=== PATIENT | female | born 1950 | race Caucasian/White ===

== ENCOUNTER 2018-11-07 17:03 | Emergency (ER) | payer MEDICARE, OTHER ==
[2018-11-07] MEDS: SOD CHLORIDE 0.9% 680 ML IV (17:41)
[2018-11-07 17:48] LABS: ADD MAN DIFF? NO
[2018-11-07 17:51] LABS: BASOPHIL # 0.1 10^3/ul (0.0-0.1); BASOPHILS % 1.5 % (0.0-2.0); EOSINOPHILS # 0.2 10^3/ul (0.0-0.5); EOSINOPHILS % 3.9 % (0.0-7.0); HEMATOCRIT 28.5 % (37.0-47.0); HEMOGLOBIN 9.4 g/dl (12.0-16.0); LYMPHOCYTES # 1.9 10^3/ul (0.8-2.9); LYMPHOCYTES % 32.3 % (15.0-51.0); MEAN CORPUSCULAR HEMOGLOBIN 29.8 pg (29.0-33.0); MEAN CORPUSCULAR VOLUME 90.5 fl (82.0-101.0); MEAN PLATELET VOLUME 12.3 fl (7.4-10.4); MONOCYTE # 0.7 10^3/ul (0.3-0.9); MONOCYTES % 10.9 % (0.0-11.0); NEUTROPHILS % 50.9 % (39.0-77.0); PLATELET COUNT 105 10^3/UL (140-415); RED BLOOD COUNT 3.15 10^6/ul (4.20-5.40); RED CELL DISTRIBUTION WIDTH 15.9 % (11.5-14.5)
[2018-11-07 17:57] LABS: ANION GAP 2 (5-13); BLOOD UREA NITROGEN 16 mg/dl (7-20); CALCIUM 8.2 mg/dl (8.4-10.2); CARBON DIOXIDE 25 mmol/L (21-31); CHLORIDE 105 mmol/L (97-110); CREATININE 0.52 mg/dl (0.44-1.00); Estimated GFR > 60 mL/min (>60); MAGNESIUM 1.5 mg/dl (1.7-2.5); PHOSPHORUS 3.5 mg/dl (2.5-4.9); POTASSIUM 4.9 mmol/L (3.5-5.1); SODIUM 132 mmol/L (135-144)
[2018-11-07 18:03] LABS: GLUCOSE 487 mg/dl (70-220)
[2018-11-07 18:08] LABS: TROPONIN-I < 0.012 ng/ml (0.000-0.120)
[2018-11-07 18:12] LABS: AADO2 Venous 47.8 mmHg; MODE ROOM AIR; MetHgb Venous 0.5 %; Sample Type Blood venous; Site OTHER; Venous COHb 0.3 %; Venous Fraction OxyHgb 88.6 %; Venous Oxygen Sat 89.3 mmHG (55.0-75.0); Venous Total Hemglobin 10.4 g/dl
[2018-11-07] MEDS: INSULIN LISPRO 100 UNIT/ML VIAL SC (19:21)
[2018-11-07 21:54] LABS: ADD UMIC NO; UR ASCORBIC ACID NEGATIVE (NEGATIVE); UR BILIRUBIN (Dip) NEGATIVE (NEGATIVE); UR BLOOD (Dip) NEGATIVE (NEGATIVE); UR CLARITY CLEAR (CLEAR); UR COLOR YELLOW (YELLOW); UR GLUCOSE (Dip) 3+ mg/dL (NEGATIVE); UR KETONES (Dip) NEGATIVE (NEGATIVE); UR LEUKOCYTE ESTERASE (Dip) NEGATIVE Leu/ul (NEGATIVE); UR NITRITE (Dip) NEGATIVE (NEGATIVE); UR SPECIFIC GRAVITY (Dip) 1.023 (1.003-1.030); UR TOTAL PROTEIN (Dip) NEGATIVE (NEGATIVE); UR UROBILINOGEN (Dip) NEGATIVE (NEGATIVE)
[2018-11-07] MEDS ORDERED: GLUCOSE GEL 15 GRAM TUBE BUCCAL (22:30)
[2018-11-07] MEDS ORDERED: GLUCAGON 1 MG INJ IM (22:30)
[2018-11-07] MEDS ORDERED: DEXTROSE 50% 50 ML SYRINGE IV ×2 (22:30)
[2018-11-07] MEDS ORDERED: GLUCOSE GEL 15 GRAM TUBE PO ×2 (22:30)
[2018-11-07] MEDS: MAGNESIUM SULFATE 1 GM/D5W 100 ML IVPB ×2 (22:49)
[2018-11-07] MEDS: INSULIN REGULAR, HUMAN 100 UNIT/1 ML 3ML VIAL SC (22:52)
== END 2018-11-08 02:15 | disposition home or self-care (01) ==
LOC: E/R 11-08 02:15
DX: E11.65 Type 2 diabetes mellitus with hyperglycemia (principal); I10 Essential (primary) hypertension; Z79.4 Long term (current) use of insulin
CPT/HCPCS: 36415; 71045; 80048; 81003; 82803; 82962; 83735; 84100; 84484; 85025; 93005; 96361; 96365; 96372; 99285-25

== ENCOUNTER 2018-11-08 20:16 | Inpatient (IN) | payer MEDICARE, OTHER ==
[2018-11-08] MEDS: LORAZEPAM 2 MG INJ IV (20:40)
[2018-11-08 21:51] LABS: ADD UMIC NO; UR ASCORBIC ACID 20 mg/dL (NEGATIVE); UR BILIRUBIN (Dip) NEGATIVE (NEGATIVE); UR BLOOD (Dip) NEGATIVE (NEGATIVE); UR CLARITY CLEAR (CLEAR); UR COLOR YELLOW (YELLOW); UR GLUCOSE (Dip) NEGATIVE (NEGATIVE); UR KETONES (Dip) NEGATIVE (NEGATIVE); UR LEUKOCYTE ESTERASE (Dip) NEGATIVE Leu/ul (NEGATIVE); UR NITRITE (Dip) NEGATIVE (NEGATIVE); UR SPECIFIC GRAVITY (Dip) 1.018 (1.003-1.030); UR TOTAL PROTEIN (Dip) NEGATIVE (NEGATIVE); UR UROBILINOGEN (Dip) NEGATIVE (NEGATIVE)
[2018-11-08 21:52] LABS: ADD MAN DIFF? NO
[2018-11-08 21:55] LABS: BASOPHIL # 0.1 10^3/ul (0.0-0.1); BASOPHILS % 1.1 % (0.0-2.0); EOSINOPHILS # 0.1 10^3/ul (0.0-0.5); EOSINOPHILS % 2.3 % (0.0-7.0); HEMATOCRIT 35.8 % (37.0-47.0); HEMOGLOBIN 11.4 g/dl (12.0-16.0); LYMPHOCYTES # 1.6 10^3/ul (0.8-2.9); LYMPHOCYTES % 29.6 % (15.0-51.0); MEAN CORPUSCULAR HEMOGLOBIN 29.5 pg (29.0-33.0); MEAN CORPUSCULAR HGB CONC 31.8 g/dl (32.0-37.0); MEAN CORPUSCULAR VOLUME 92.5 fl (82.0-101.0); MEAN PLATELET VOLUME 12.1 fl (7.4-10.4); MONOCYTE # 0.4 10^3/ul (0.3-0.9); MONOCYTES % 7.1 % (0.0-11.0); NEUTROPHIL # 3.1 10^3/ul (1.6-7.5); NEUTROPHILS % 59.5 % (39.0-77.0); PLATELET COUNT 123 10^3/UL (140-415); RED BLOOD COUNT 3.87 10^6/ul (4.20-5.40); RED CELL DISTRIBUTION WIDTH 15.6 % (11.5-14.5)
[2018-11-08 21:55] LABS: WHITE BLOOD COUNT 5.2 10^3/ul (4.8-10.8)
[2018-11-08 22:05] LABS: AMPHETAMINE/METHAMPHETAMINE Negative (NEGATIVE); BARBITURATES Negative (NEGATIVE); BENZODIAZEPINES Positive (NEGATIVE); CANNABINOIDS Negative (NEGATIVE); COCAINE Negative (NEGATIVE); OPIATES Negative (NEGATIVE)
[2018-11-08 22:14] LABS: ALANINE AMINOTRANSFERASE 93 IU/L (13-69); ALBUMIN 2.5 g/dl (3.3-4.9); ALBUMIN/GLOBULIN RATIO 0.58; ALKALINE PHOSPHATASE 148 IU/L (42-121); ANION GAP 3 (5-13); ASPARTATE AMINO TRANSFERASE 109 IU/L (15-46); BILIRUBIN,INDIRECT 0.8 mg/dl (0-1.1); BILIRUBIN,TOTAL 0.8 mg/dl (0.2-1.3); BLOOD UREA NITROGEN 19 mg/dl (7-20); CALCIUM 8.1 mg/dl (8.4-10.2); CARBON DIOXIDE 26 mmol/L (21-31); CHLORIDE 107 mmol/L (97-110); CREATININE 0.55 mg/dl (0.44-1.00); Estimated GFR > 60 mL/min (>60); GLUCOSE 229 mg/dl (70-220); POTASSIUM 4.1 mmol/L (3.5-5.1); SODIUM 136 mmol/L (135-144); TOTAL PROTEIN 6.8 g/dl (6.1-8.1)
[2018-11-08 22:15] LABS: AMMONIA 38 umol/l (9-30)
[2018-11-08] MEDS: SOD CHLORIDE 0.9% 1,000 ML IV (22:22)
[2018-11-08] MEDS: HALOPERIDOL 5 MG INJ IM (22:22)
[2018-11-08 22:26] LABS: TROPONIN-I < 0.012 ng/ml (0.000-0.120)
[2018-11-08 22:40] LABS: ETHANOL < 10.0 mg/dl (0-0)
[2018-11-08] MEDS ORDERED: NACL 0.9% 3 ML SYG IV (23:30)
[2018-11-08] MEDS ORDERED: DEXTROSE 50% 50 ML SYRINGE IV ×2 (23:30)
[2018-11-08] MEDS ORDERED: GLUCOSE GEL 15 GRAM TUBE PO ×2 (23:30)
[2018-11-08] MEDS ORDERED: DOCUSATE SODIUM 100 MG CAP PO (23:30)
[2018-11-08] MEDS ORDERED: BISACODYL (EC) 5 MG TAB PO (23:30)
[2018-11-08] MEDS ORDERED: GLUCAGON 1 MG INJ IM (23:30)
[2018-11-08] MEDS ORDERED: ONDANSETRON 4 MG INJ IV (23:30)
[2018-11-08] MEDS ORDERED: GLUCOSE GEL 15 GRAM TUBE BUCCAL (23:30)
[2018-11-08 23:31] LABS: MODE ROOM AIR; MetHgb Venous 0.5 %; Sample Type Blood venous; Site VENOUS LINE; Venous COHb 0.2 %; Venous Fraction OxyHgb 90.9 %; Venous Oxygen Sat 91.5 mmHG (55.0-75.0); Venous Total Hemglobin 7.8 g/dl
[2018-11-08] MEDS: MIDAZOLAM 1 MG/ML 2 ML INJ IV (23:34)
[2018-11-08 23:46] LABS: HAAIG REFLEX REFLEX FILED
[2018-11-09] MEDS: LACTULOSE 30ML CUP PO (00:03)
[2018-11-09 00:39] LABS: HEPATITIS B SURFACE ANTIGEN NEGATIVE (NEGATIVE)
[2018-11-09 00:57] LABS: HEPATITIS B CORE ANTIBODY NEGATIVE (NEGATIVE)
[2018-11-09 00:57] LABS: HEPATITIS B SURFACE ANTIBODY NEGATIVE (NEGATIVE)
[2018-11-09] MEDS: INSULIN ASPART [NOVOLOG] 3 ML PEN SC ×6 (01:00→21:00)
[2018-11-09 01:01] LABS: HEPATITIS C VIRAL ANTIBODY REACTIVE (NEGATIVE)
[2018-11-09] MEDS: SOD CHLORIDE 0.9% 1,000 ML IV (01:24)
[2018-11-09] MEDS: ACCU-CHEK XX (01:47)
[2018-11-09] MEDS ORDERED: hydrALAzine 20 MG INJ IV (03:30)
[2018-11-09 05:41] LABS: ADD MAN DIFF? NO
[2018-11-09 05:49] LABS: WHITE BLOOD COUNT 5.2 10^3/ul (4.8-10.8)
[2018-11-09 05:49] LABS: ABNORMAL IP MESSAGE 1; BASOPHIL # 0.1 10^3/ul (0.0-0.1); BASOPHILS % 1.1 % (0.0-2.0); EOSINOPHILS # 0.2 10^3/ul (0.0-0.5); EOSINOPHILS % 4.4 % (0.0-7.0); HEMATOCRIT 30.8 % (37.0-47.0); HEMOGLOBIN 9.9 g/dl (12.0-16.0); LYMPHOCYTES # 1.7 10^3/ul (0.8-2.9); LYMPHOCYTES % 33.1 % (15.0-51.0); MEAN CORPUSCULAR HEMOGLOBIN 29.5 pg (29.0-33.0); MEAN CORPUSCULAR HGB CONC 32.1 g/dl (32.0-37.0); MEAN CORPUSCULAR VOLUME 91.7 fl (82.0-101.0); MEAN PLATELET VOLUME 12.2 fl (7.4-10.4); MONOCYTE # 0.4 10^3/ul (0.3-0.9); MONOCYTES % 8.4 % (0.0-11.0); NEUTROPHIL # 2.8 10^3/ul (1.6-7.5); NEUTROPHILS % 52.8 % (39.0-77.0); PLATELET COUNT 98 10^3/UL (140-415); RED BLOOD COUNT 3.36 10^6/ul (4.20-5.40); RED CELL DISTRIBUTION WIDTH 15.8 % (11.5-14.5)
[2018-11-09 05:58] LABS: POSITIVE DIFF @See below
[2018-11-09 06:40] LABS: ALANINE AMINOTRANSFERASE 76 IU/L (13-69); ALBUMIN 1.9 g/dl (3.3-4.9); ALBUMIN/GLOBULIN RATIO 0.54; ALKALINE PHOSPHATASE 107 IU/L (42-121); ANION GAP 1 (5-13); ASPARTATE AMINO TRANSFERASE 85 IU/L (15-46); BILIRUBIN,INDIRECT 0.7 mg/dl (0-1.1); BILIRUBIN,TOTAL 0.7 mg/dl (0.2-1.3); BLOOD UREA NITROGEN 16 mg/dl (7-20); CALCIUM 7.5 mg/dl (8.4-10.2); CARBON DIOXIDE 25 mmol/L (21-31); CHLORIDE 112 mmol/L (97-110); CREATININE 0.43 mg/dl (0.44-1.00); Estimated GFR > 60 mL/min (>60); GLUCOSE 186 mg/dl (70-220); MAGNESIUM 1.7 mg/dl (1.7-2.5); POTASSIUM 3.5 mmol/L (3.5-5.1); SODIUM 138 mmol/L (135-144); TOTAL PROTEIN 5.4 g/dl (6.1-8.1)
[2018-11-09] MEDS: SOD CHLORIDE 0.45% 1,000 ML IV ×2 (09:36→21:00)
[2018-11-09] MEDS: hydrALAzine 20 MG INJ IV (09:46)
[2018-11-09 10:43] LABS: AMMONIA 83 umol/l (9-30)
[2018-11-09] MEDS: DIAZEPAM 10 MG/2 ML SYG IV (16:07)
[2018-11-09] MEDS: THIAMINE 100 MG TAB PO (17:00)
[2018-11-09] MEDS: LACTULOSE ENEMA 1,000 ML BTL PR (18:49)
[2018-11-10] MEDS: INSULIN ASPART [NOVOLOG] 3 ML PEN SC ×6 (00:59→20:44)
[2018-11-10] MEDS: ACCU-CHEK XX (01:03)
[2018-11-10] MEDS: SOD CHLORIDE 0.45% 1,000 ML IV (01:04)
[2018-11-10 05:50] LABS: ADD MAN DIFF? NO
[2018-11-10 05:57] LABS: WHITE BLOOD COUNT 6.7 10^3/ul (4.8-10.8)
[2018-11-10 05:57] LABS: BASOPHIL # 0.1 10^3/ul (0.0-0.1); BASOPHILS % 1.5 % (0.0-2.0); EOSINOPHILS # 0.2 10^3/ul (0.0-0.5); EOSINOPHILS % 3.3 % (0.0-7.0); HEMATOCRIT 32.7 % (37.0-47.0); HEMOGLOBIN 10.7 g/dl (12.0-16.0); LYMPHOCYTES # 1.9 10^3/ul (0.8-2.9); LYMPHOCYTES % 29.1 % (15.0-51.0); MEAN CORPUSCULAR HEMOGLOBIN 29.7 pg (29.0-33.0); MEAN CORPUSCULAR HGB CONC 32.7 g/dl (32.0-37.0); MEAN CORPUSCULAR VOLUME 90.8 fl (82.0-101.0); MEAN PLATELET VOLUME 11.4 fl (7.4-10.4); MONOCYTE # 0.7 10^3/ul (0.3-0.9); NEUTROPHIL # 3.7 10^3/ul (1.6-7.5); NEUTROPHILS % 55.8 % (39.0-77.0); RED CELL DISTRIBUTION WIDTH 15.8 % (11.5-14.5)
[2018-11-10 06:16] LABS: INR 1.76; PROTIME 20.6 Sec (11.9-14.9); PT RATIO 1.6
[2018-11-10 06:29] LABS: ALANINE AMINOTRANSFERASE 100 IU/L (13-69); ALBUMIN 1.9 g/dl (3.3-4.9); ALBUMIN/GLOBULIN RATIO 0.46; ALKALINE PHOSPHATASE 107 IU/L (42-121); ANION GAP 5 (5-13); ASPARTATE AMINO TRANSFERASE 131 IU/L (15-46); BILIRUBIN,INDIRECT 1.4 mg/dl (0-1.1); BILIRUBIN,TOTAL 1.4 mg/dl (0.2-1.3); BLOOD UREA NITROGEN 17 mg/dl (7-20); CALCIUM 7.7 mg/dl (8.4-10.2); CARBON DIOXIDE 20 mmol/L (21-31); CHLORIDE 113 mmol/L (97-110); CREATININE 0.42 mg/dl (0.44-1.00); Estimated GFR > 60 mL/min (>60); GLUCOSE 109 mg/dl (70-220); POTASSIUM 3.5 mmol/L (3.5-5.1); SODIUM 138 mmol/L (135-144)
[2018-11-10 06:30] LABS: PHOSPHORUS 3.1 mg/dl (2.5-4.9)
[2018-11-10 06:30] LABS: MAGNESIUM 1.6 mg/dl (1.7-2.5)
[2018-11-10 06:34] LABS: AMMONIA 84 umol/l (9-30)
[2018-11-10 06:49] LABS: PLATELET COUNT 128 10^3/UL (140-415); POSITIVE DIFF @See below
[2018-11-10 07:33] LABS: FOLATE 12.3 ng/ml (2.8-20.0)
[2018-11-10] MEDS: THIAMINE 100 MG TAB PO (09:00)
[2018-11-10] MEDS: FAMOTIDINE 20 MG INJ IV (09:00)
[2018-11-10 15:37] LABS: RAPID PLASMA REAGIN NONREACTIVE (NR)
[2018-11-10] MEDS: ACETAMINOPHEN 325 MG TAB PO (22:12)
[2018-11-11] MEDS: ACCU-CHEK XX (02:00)
[2018-11-11] MEDS: INSULIN ASPART [NOVOLOG] 3 ML PEN SC ×4 (07:05→21:39)
[2018-11-11] MEDS: FAMOTIDINE 20 MG INJ IV (09:00)
[2018-11-11] MEDS: THIAMINE 100 MG TAB PO (09:01)
[2018-11-11] MEDS: LACTULOSE 30ML CUP PO ×3 (11:44→21:37)
[2018-11-11] MEDS: ACETAMINOPHEN 325 MG TAB PO (21:37)
[2018-11-12] MEDS: ACCU-CHEK XX ×4 (02:00→20:57)
[2018-11-12 05:22] LABS: ADD MAN DIFF? NO
[2018-11-12 05:26] LABS: BASOPHIL # 0.1 10^3/ul (0.0-0.1); BASOPHILS % 1.3 % (0.0-2.0); EOSINOPHILS # 0.3 10^3/ul (0.0-0.5); EOSINOPHILS % 5.1 % (0.0-7.0); HEMATOCRIT 31.9 % (37.0-47.0); HEMOGLOBIN 10.3 g/dl (12.0-16.0); LYMPHOCYTES # 2.1 10^3/ul (0.8-2.9); LYMPHOCYTES % 33.2 % (15.0-51.0); MEAN CORPUSCULAR HEMOGLOBIN 28.9 pg (29.0-33.0); MEAN CORPUSCULAR HGB CONC 32.3 g/dl (32.0-37.0); MEAN CORPUSCULAR VOLUME 89.6 fl (82.0-101.0); MEAN PLATELET VOLUME 11.8 fl (7.4-10.4); MONOCYTE # 0.6 10^3/ul (0.3-0.9); MONOCYTES % 8.9 % (0.0-11.0); NEUTROPHIL # 3.2 10^3/ul (1.6-7.5); NEUTROPHILS % 51.2 % (39.0-77.0); PLATELET COUNT 132 10^3/UL (140-415); RED BLOOD COUNT 3.56 10^6/ul (4.20-5.40); RED CELL DISTRIBUTION WIDTH 15.4 % (11.5-14.5)
[2018-11-12 05:26] LABS: WHITE BLOOD COUNT 6.3 10^3/ul (4.8-10.8)
[2018-11-12] MEDS: LACTULOSE 30ML CUP PO ×3 (05:30→20:56)
[2018-11-12 05:52] LABS: MAGNESIUM 1.5 mg/dl (1.7-2.5)
[2018-11-12 05:54] LABS: AMMONIA 26 umol/l (9-30)
[2018-11-12 05:56] LABS: ALANINE AMINOTRANSFERASE 121 IU/L (13-69); ALBUMIN 2.2 g/dl (3.3-4.9); ALBUMIN/GLOBULIN RATIO 0.53; ALKALINE PHOSPHATASE 135 IU/L (42-121); ANION GAP 2 (5-13); ASPARTATE AMINO TRANSFERASE 165 IU/L (15-46); BILIRUBIN,INDIRECT 1.5 mg/dl (0-1.1); BILIRUBIN,TOTAL 1.5 mg/dl (0.2-1.3); BLOOD UREA NITROGEN 13 mg/dl (7-20); CALCIUM 8.1 mg/dl (8.4-10.2); CARBON DIOXIDE 28 mmol/L (21-31); CHLORIDE 107 mmol/L (97-110); CREATININE 0.52 mg/dl (0.44-1.00); Estimated GFR > 60 mL/min (>60); GLUCOSE 132 mg/dl (70-220); POTASSIUM 3.6 mmol/L (3.5-5.1); SODIUM 137 mmol/L (135-144); TOTAL PROTEIN 6.3 g/dl (6.1-8.1)
[2018-11-12] MEDS: FAMOTIDINE 20 MG INJ IV (07:36)
[2018-11-12] MEDS: THIAMINE 100 MG TAB PO (08:06)
[2018-11-12] MEDS: FAMOTIDINE 20 MG TAB PO (08:06)
[2018-11-12] MEDS: INSULIN ASPART [NOVOLOG] 3 ML PEN SC ×4 (08:08→20:56)
[2018-11-12] MEDS ORDERED: MAGNESIUM SULFATE 3 GM in DEXTROSE 5% 100 ML IVPB (08:30)
[2018-11-12] MEDS ORDERED: MAGNESIUM OXIDE 400 MG TAB (09:17)
[2018-11-12] MEDS: METOPROLOL (XL) 25 MG TAB PO (09:21)
[2018-11-12] MEDS: MAGNESIUM OXIDE 400 MG TAB PO ×3 (09:21→20:56)
[2018-11-12] MEDS: metFORMIN 500 MG TAB PO ×3 (13:30→17:11)
[2018-11-12] MEDS: ACETAMINOPHEN 325 MG TAB PO (20:56)
[2018-11-13] MEDS: ACCU-CHEK XX ×2 (02:00→07:05)
[2018-11-13 05:32] LABS: ADD MAN DIFF? NO
[2018-11-13 05:34] LABS: BASOPHIL # 0.1 10^3/ul (0.0-0.1); BASOPHILS % 1.5 % (0.0-2.0); EOSINOPHILS # 0.4 10^3/ul (0.0-0.5); EOSINOPHILS % 6.4 % (0.0-7.0); HEMATOCRIT 34.3 % (37.0-47.0); LYMPHOCYTES # 2.1 10^3/ul (0.8-2.9); LYMPHOCYTES % 34.4 % (15.0-51.0); MEAN CORPUSCULAR HGB CONC 32.1 g/dl (32.0-37.0); MEAN CORPUSCULAR VOLUME 90.5 fl (82.0-101.0); MEAN PLATELET VOLUME 10.7 fl (7.4-10.4); MONOCYTE # 0.5 10^3/ul (0.3-0.9); MONOCYTES % 8.9 % (0.0-11.0); NEUTROPHIL # 2.9 10^3/ul (1.6-7.5); NEUTROPHILS % 48.5 % (39.0-77.0); PLATELET COUNT 150 10^3/UL (140-415); RED BLOOD COUNT 3.79 10^6/ul (4.20-5.40); RED CELL DISTRIBUTION WIDTH 15.3 % (11.5-14.5)
[2018-11-13 05:55] LABS: MAGNESIUM 1.7 mg/dl (1.7-2.5)
[2018-11-13 05:55] LABS: PHOSPHORUS 2.9 mg/dl (2.5-4.9)
[2018-11-13 05:58] LABS: AMMONIA 91 umol/l (9-30)
[2018-11-13 05:58] LABS: ALANINE AMINOTRANSFERASE 118 IU/L (13-69); ALBUMIN 2.3 g/dl (3.3-4.9); ALBUMIN/GLOBULIN RATIO 0.52; ALKALINE PHOSPHATASE 155 IU/L (42-121); ANION GAP 2 (5-13); ASPARTATE AMINO TRANSFERASE 161 IU/L (15-46); BILIRUBIN,INDIRECT 1.4 mg/dl (0-1.1); BILIRUBIN,TOTAL 1.4 mg/dl (0.2-1.3); BLOOD UREA NITROGEN 15 mg/dl (7-20); CALCIUM 8.2 mg/dl (8.4-10.2); CARBON DIOXIDE 26 mmol/L (21-31); CHLORIDE 106 mmol/L (97-110); CREATININE 0.48 mg/dl (0.44-1.00); Estimated GFR > 60 mL/min (>60); GLUCOSE 159 mg/dl (70-220); POTASSIUM 3.8 mmol/L (3.5-5.1); SODIUM 134 mmol/L (135-144); TOTAL PROTEIN 6.7 g/dl (6.1-8.1)
[2018-11-13] MEDS: LACTULOSE 30ML CUP PO (06:00)
[2018-11-13] MEDS: FAMOTIDINE 20 MG TAB PO (08:39)
[2018-11-13] MEDS: metFORMIN 500 MG TAB PO (08:39)
[2018-11-13] MEDS: THIAMINE 100 MG TAB PO (08:40)
[2018-11-13] MEDS: MAGNESIUM OXIDE 400 MG TAB PO (08:40)
[2018-11-13] MEDS: METOPROLOL (XL) 25 MG TAB PO (08:41)
[2018-11-13] MEDS: INSULIN ASPART [NOVOLOG] 3 ML PEN SC (08:44)
== END 2018-11-13 11:35 | disposition home health service (06) | DRG 441 ==
LOC: MS3 23:24 → E/R 20:16
PROVIDERS: Family Medicine
DX: K72.90 Hepatic failure, unspecified without coma (principal); G92 Toxic encephalopathy; E11.65 Type 2 diabetes mellitus with hyperglycemia; K70.30 Alcoholic cirrhosis of liver without ascites; K82.8 Other specified diseases of gallbladder; E88.81 Metabolic syndrome and other insulin resistance; B19.20 Unspecified viral hepatitis C without hepatic coma; I10 Essential (primary) hypertension; I83.90 Asymptomatic varicose veins of unspecified lower extremity; G25.71 Drug induced akathisia; T43.4X5A Adverse effect of butyrophenone and thiothixene neuroleptics, initial encounter
CPT/HCPCS: 36415; 70450; 71045; 74176; 76705; 80053; 80307; 81003; 82105; 82140; 82607; 82746; 82803; 82962; 83036; 83735; 84100; 84443; 84484; 85025; 85610; 86592; 86704; 86706; 86709; 86803; 87340; 87522; 92610; 93005; 96361; 96372; 96374; 97110; 97116; 97162; 97530; 99285-25

== ENCOUNTER 2018-11-13 19:11 | Inpatient (IN) | payer MEDICARE, OTHER ==
[2018-11-13] MEDS: LACTULOSE ENEMA 1,000 ML BTL PR (02:35)
[2018-11-13] MEDS: SOD CHLORIDE 0.9% 1,000 ML IV (04:00)
[2018-11-13] MEDS ORDERED: ACETAMINOPHEN 325 MG TAB PO (19:30)
[2018-11-13] MEDS ORDERED: ONDANSETRON 4 MG INJ IV ×2 (19:30→20:00)
[2018-11-13 19:55] LABS: ADD UMIC YES; UR ASCORBIC ACID NEGATIVE (NEGATIVE); UR BILIRUBIN (Dip) NEGATIVE (NEGATIVE); UR BLOOD (Dip) 3+ mg/dL (NEGATIVE); UR CLARITY SLIGHTLY CLOUDY (CLEAR); UR COLOR AMBER (YELLOW); UR GLUCOSE (Dip) NEGATIVE (NEGATIVE); UR KETONES (Dip) TRACE mg/dL (NEGATIVE); UR LEUKOCYTE ESTERASE (Dip) TRACE Leu/ul (NEGATIVE); UR MUCUS FEW /HPF (NONE SEEN); UR NITRITE (Dip) NEGATIVE (NEGATIVE); UR RBC > 182 /HPF (0-5); UR SPECIFIC GRAVITY (Dip) 1.024 (1.003-1.030); UR TOTAL PROTEIN (Dip) 1+ mg/dl (NEGATIVE); UR UROBILINOGEN (Dip) 1+ mg/dL (NEGATIVE); UR WBC 32 /HPF (0-5)
[2018-11-13] MEDS ORDERED: NACL 0.9% 3 ML SYG IV (20:00)
[2018-11-13 20:01] LABS: ADD MAN DIFF? NO
[2018-11-13 20:06] LABS: AMPHETAMINE/METHAMPHETAMINE Negative (NEGATIVE); BARBITURATES Negative (NEGATIVE); BENZODIAZEPINES Positive (NEGATIVE); CANNABINOIDS Negative (NEGATIVE); COCAINE Negative (NEGATIVE); OPIATES Negative (NEGATIVE)
[2018-11-13] MEDS: LORAZEPAM 2 MG INJ IV (20:09)
[2018-11-13] MEDS: LACTULOSE 30ML CUP PO (20:13)
[2018-11-13 20:15] LABS: BASOPHIL # 0.1 10^3/ul (0.0-0.1); BASOPHILS % 1.5 % (0.0-2.0); EOSINOPHILS # 0.3 10^3/ul (0.0-0.5); EOSINOPHILS % 4.6 % (0.0-7.0); HEMATOCRIT 32.5 % (37.0-47.0); HEMOGLOBIN 10.6 g/dl (12.0-16.0); LYMPHOCYTES # 1.8 10^3/ul (0.8-2.9); LYMPHOCYTES % 32.9 % (15.0-51.0); MEAN CORPUSCULAR HEMOGLOBIN 29.4 pg (29.0-33.0); MEAN CORPUSCULAR HGB CONC 32.6 g/dl (32.0-37.0); MEAN CORPUSCULAR VOLUME 90.3 fl (82.0-101.0); MONOCYTE # 0.5 10^3/ul (0.3-0.9); MONOCYTES % 9.9 % (0.0-11.0); NEUTROPHIL # 2.7 10^3/ul (1.6-7.5); NEUTROPHILS % 50.9 % (39.0-77.0); PLATELET COUNT 132 10^3/UL (140-415); RED CELL DISTRIBUTION WIDTH 15.4 % (11.5-14.5)
[2018-11-13 20:15] LABS: WHITE BLOOD COUNT 5.4 10^3/ul (4.8-10.8)
[2018-11-13 20:19] LABS: AMMONIA 23 umol/l (9-30)
[2018-11-13 20:20] LABS: ALANINE AMINOTRANSFERASE 119 IU/L (13-69); ALBUMIN 2.7 g/dl (3.3-4.9); ALBUMIN/GLOBULIN RATIO 0.61; ALKALINE PHOSPHATASE 164 IU/L (42-121); ANION GAP 2 (5-13); ASPARTATE AMINO TRANSFERASE 156 IU/L (15-46); BILIRUBIN,INDIRECT 1.2 mg/dl (0-1.1); BILIRUBIN,TOTAL 1.2 mg/dl (0.2-1.3); BLOOD UREA NITROGEN 18 mg/dl (7-20); CALCIUM 8.9 mg/dl (8.4-10.2); CARBON DIOXIDE 27 mmol/L (21-31); CHLORIDE 105 mmol/L (97-110); CREATININE 0.59 mg/dl (0.44-1.00); Estimated GFR > 60 mL/min (>60); GLUCOSE 184 mg/dl (70-220); SODIUM 134 mmol/L (135-144); TOTAL PROTEIN 7.1 g/dl (6.1-8.1)
[2018-11-13 20:21] LABS: ACETAMINOPHEN < 10.0 ug/ml (10.0-30.0); ETHANOL < 10.0 mg/dl (0-0); SALICYLATE < 1.0 mg/dl (5.0-30.0)
[2018-11-13] MEDS: HALOPERIDOL 5 MG INJ IM (20:38)
[2018-11-13] MEDS ORDERED: LACTULOSE 30ML CUP PO (22:00)
[2018-11-13] MEDS ORDERED: DEXTROSE 50% 50 ML SYRINGE IV ×2 (22:00)
[2018-11-13] MEDS ORDERED: GLUCOSE GEL 15 GRAM TUBE BUCCAL (22:00)
[2018-11-13] MEDS ORDERED: GLUCAGON 1 MG INJ IM (22:00)
[2018-11-13] MEDS ORDERED: GLUCOSE GEL 15 GRAM TUBE PO ×2 (22:00)
[2018-11-13] MEDS ORDERED: CEFTRIAXONE 1 GM/50 ML (PMX) 50 ML IVPB (22:00)
[2018-11-13] MEDS: CEFTRIAXONE 1 GM/50 ML (PMX) 50 ML IVPB (22:18)
[2018-11-13 22:46] LABS: LACTIC ACID 2.2 mmol/L (0.5-2.0)
[2018-11-14 00:38] LABS: LACTIC ACID 2.5 mmol/L (0.5-2.0)
[2018-11-14] MEDS: INSULIN ASPART [NOVOLOG] 3 ML PEN SC ×6 (02:35→21:00)
[2018-11-14] MEDS: ACCU-CHEK XX (02:36)
[2018-11-14] MEDS ORDERED: VANCOMYCIN IV PER PHARMACY XX (03:30)
[2018-11-14 03:34] LABS: ADD MAN DIFF? NO
[2018-11-14 03:59] LABS: PROTIME 21.9 Sec (11.9-14.9); PT RATIO 1.7
[2018-11-14 04:00] LABS: PARTIAL THROMBOPLASTIN TIME 38.7 Sec (23.0-35.0)
[2018-11-14 04:01] LABS: ALANINE AMINOTRANSFERASE 96 IU/L (13-69); ALBUMIN 2.2 g/dl (3.3-4.9); ALBUMIN/GLOBULIN RATIO 0.57; ALKALINE PHOSPHATASE 114 IU/L (42-121); ANION GAP 0 (5-13); ASPARTATE AMINO TRANSFERASE 134 IU/L (15-46); BILIRUBIN,INDIRECT 1.1 mg/dl (0-1.1); BILIRUBIN,TOTAL 1.1 mg/dl (0.2-1.3); BLOOD UREA NITROGEN 15 mg/dl (7-20); CALCIUM 8.2 mg/dl (8.4-10.2); CARBON DIOXIDE 27 mmol/L (21-31); CHLORIDE 109 mmol/L (97-110); CREATININE 0.42 mg/dl (0.44-1.00); Estimated GFR > 60 mL/min (>60); GLUCOSE 132 mg/dl (70-220); POTASSIUM 3.9 mmol/L (3.5-5.1); SODIUM 136 mmol/L (135-144)
[2018-11-14 04:06] LABS: AMMONIA 60 umol/l (9-30)
[2018-11-14 04:29] LABS: LACTIC ACID 2.3 mmol/L (0.5-2.0)
[2018-11-14] MEDS: SOD CHLORIDE 0.9% 1,000 ML IV ×2 (04:43→12:03)
[2018-11-14 05:49] LABS: WHITE BLOOD COUNT 5.2 10^3/ul (4.8-10.8)
[2018-11-14 05:49] LABS: BASOPHIL # 0.1 10^3/ul (0.0-0.1); BASOPHILS % 1.9 % (0.0-2.0); EOSINOPHILS # 0.4 10^3/ul (0.0-0.5); EOSINOPHILS % 7.1 % (0.0-7.0); HEMATOCRIT 29.3 % (37.0-47.0); HEMOGLOBIN 9.5 g/dl (12.0-16.0); LYMPHOCYTES # 2.1 10^3/ul (0.8-2.9); LYMPHOCYTES % 40.1 % (15.0-51.0); MEAN CORPUSCULAR HEMOGLOBIN 29.3 pg (29.0-33.0); MEAN CORPUSCULAR HGB CONC 32.4 g/dl (32.0-37.0); MEAN CORPUSCULAR VOLUME 90.4 fl (82.0-101.0); MEAN PLATELET VOLUME 11.7 fl (7.4-10.4); MONOCYTE # 0.6 10^3/ul (0.3-0.9); MONOCYTES % 11.1 % (0.0-11.0); NEUTROPHIL # 2.1 10^3/ul (1.6-7.5); NEUTROPHILS % 39.6 % (39.0-77.0); NUCLEATED RED BLOOD CELLS% 0.4 /100WBC (0.0-0.0); PLATELET COUNT 131 10^3/UL (140-415); RED BLOOD COUNT 3.24 10^6/ul (4.20-5.40); RED CELL DISTRIBUTION WIDTH 15.3 % (11.5-14.5)
[2018-11-14] MEDS: LACTULOSE 30ML CUP PO ×4 (06:00→22:00)
[2018-11-14] MEDS: LACTULOSE ENEMA 1,000 ML BTL PR (06:25)
[2018-11-14] MEDS: PIPER-TAZO 3.375 GM IV (PMX) 100 ML IVPB ×4 (07:59→23:54)
[2018-11-14] MEDS: VANCOMYCIN 1.5 GM/NS 250 ML 250 ML IVPB (08:41)
[2018-11-14] MEDS: LORAZEPAM 2 MG INJ IV (15:42)
[2018-11-14] MEDS ORDERED: VANCOMYCIN 1 GM 250 ML IVPB (16:00)
[2018-11-15] MEDS: INSULIN ASPART [NOVOLOG] 3 ML PEN SC ×6 (01:00→21:00)
[2018-11-15] MEDS: ACCU-CHEK XX (01:23)
[2018-11-15] MEDS: LORAZEPAM 2 MG INJ IV ×2 (02:43→14:13)
[2018-11-15 05:38] LABS: ADD MAN DIFF? NO
[2018-11-15] MEDS: LACTULOSE 30ML CUP PO ×3 (05:38→22:00)
[2018-11-15 05:47] LABS: BASOPHIL # 0.1 10^3/ul (0.0-0.1); BASOPHILS % 1.8 % (0.0-2.0); EOSINOPHILS # 0.3 10^3/ul (0.0-0.5); EOSINOPHILS % 5.1 % (0.0-7.0); HEMATOCRIT 31.9 % (37.0-47.0); HEMOGLOBIN 10.1 g/dl (12.0-16.0); LYMPHOCYTES # 1.7 10^3/ul (0.8-2.9); LYMPHOCYTES % 32.5 % (15.0-51.0); MEAN CORPUSCULAR HEMOGLOBIN 28.9 pg (29.0-33.0); MEAN CORPUSCULAR HGB CONC 31.7 g/dl (32.0-37.0); MEAN CORPUSCULAR VOLUME 91.4 fl (82.0-101.0); MEAN PLATELET VOLUME 11.4 fl (7.4-10.4); MONOCYTE # 0.7 10^3/ul (0.3-0.9); MONOCYTES % 12.7 % (0.0-11.0); NEUTROPHIL # 2.4 10^3/ul (1.6-7.5); NEUTROPHILS % 47.5 % (39.0-77.0); PLATELET COUNT 138 10^3/UL (140-415); RED BLOOD COUNT 3.49 10^6/ul (4.20-5.40); RED CELL DISTRIBUTION WIDTH 15.9 % (11.5-14.5)
[2018-11-15 05:47] LABS: WHITE BLOOD COUNT 5.1 10^3/ul (4.8-10.8)
[2018-11-15] MEDS: PIPER-TAZO 3.375 GM IV (PMX) 100 ML IVPB ×2 (05:59→12:29)
[2018-11-15] MEDS: HYDROmorphONE 1 MG/ML SYG IV (05:59)
[2018-11-15 06:08] LABS: AMMONIA 19 umol/l (9-30)
[2018-11-15 07:10] LABS: MAGNESIUM 1.8 mg/dl (1.7-2.5)
[2018-11-15 07:10] LABS: PHOSPHORUS 3.5 mg/dl (2.5-4.9)
[2018-11-15] MEDS: VANCOMYCIN 1.25 GM/NS 250 ML 250 ML IVPB (07:45)
[2018-11-15] MEDS: FAMOTIDINE 20 MG INJ IV (08:33)
[2018-11-15 09:00] LABS: ALANINE AMINOTRANSFERASE 100 IU/L (13-69); ALBUMIN 2.2 g/dl (3.3-4.9); ALBUMIN/GLOBULIN RATIO 0.56; ALKALINE PHOSPHATASE 121 IU/L (42-121); ANION GAP 5 (5-13); ASPARTATE AMINO TRANSFERASE 149 IU/L (15-46); BILIRUBIN,INDIRECT 1.5 mg/dl (0-1.1); BILIRUBIN,TOTAL 1.6 mg/dl (0.2-1.3); BLOOD UREA NITROGEN 19 mg/dl (7-20); CALCIUM 8.2 mg/dl (8.4-10.2); CARBON DIOXIDE 21 mmol/L (21-31); CHLORIDE 115 mmol/L (97-110); CREATININE 0.57 mg/dl (0.44-1.00); Estimated GFR > 60 mL/min (>60); GLUCOSE 98 mg/dl (70-220); POTASSIUM 3.7 mmol/L (3.5-5.1); SODIUM 141 mmol/L (135-144); TOTAL PROTEIN 6.1 g/dl (6.1-8.1)
[2018-11-15] MEDS: MULTIVITAMINS 10 ML, THIAMINE 100 MG, FOLIC ACID 1 MG in SOD CHLORIDE 0.9% 1,000 ML IVPB (12:58)
[2018-11-15] MEDS: CEFTRIAXONE 1 GM/50 ML (PMX) 50 ML IVPB (14:51)
[2018-11-15] MEDS: SOD CHLORIDE 0.45% 1,000 ML IV (14:57)
[2018-11-15] MEDS: OLANZAPINE 10 MG VIAL IM (16:50)
[2018-11-16] MEDS: INSULIN ASPART [NOVOLOG] 3 ML PEN SC ×6 (01:00→21:00)
[2018-11-16] MEDS: ACCU-CHEK XX (02:00)
[2018-11-16] MEDS: LACTULOSE 30ML CUP PO (05:48)
[2018-11-16 05:54] LABS: ADD MAN DIFF? NO
[2018-11-16] MEDS: DEXTROSE 5%-0.9% NACL 1,000 ML IV (06:04)
[2018-11-16 06:17] LABS: AMMONIA 34 umol/l (9-30)
[2018-11-16 06:20] LABS: ALANINE AMINOTRANSFERASE 110 IU/L (13-69); ALBUMIN/GLOBULIN RATIO 0.54; ALKALINE PHOSPHATASE 107 IU/L (42-121); ANION GAP 3 (5-13); ASPARTATE AMINO TRANSFERASE 170 IU/L (15-46); BILIRUBIN,INDIRECT 1.3 mg/dl (0-1.1); BILIRUBIN,TOTAL 1.4 mg/dl (0.2-1.3); BLOOD UREA NITROGEN 15 mg/dl (7-20); CALCIUM 7.6 mg/dl (8.4-10.2); CARBON DIOXIDE 25 mmol/L (21-31); CHLORIDE 111 mmol/L (97-110); CREATININE 0.58 mg/dl (0.44-1.00); Estimated GFR > 60 mL/min (>60); GLUCOSE 82 mg/dl (70-220); POTASSIUM 3.4 mmol/L (3.5-5.1); SODIUM 139 mmol/L (135-144); TOTAL PROTEIN 5.7 g/dl (6.1-8.1)
[2018-11-16 06:38] LABS: BASOPHIL # 0.1 10^3/ul (0.0-0.1); EOSINOPHILS # 0.4 10^3/ul (0.0-0.5); EOSINOPHILS % 8.6 % (0.0-7.0); HEMATOCRIT 30.9 % (37.0-47.0); HEMOGLOBIN 10.1 g/dl (12.0-16.0); LYMPHOCYTES # 1.6 10^3/ul (0.8-2.9); LYMPHOCYTES % 35.8 % (15.0-51.0); MEAN CORPUSCULAR HEMOGLOBIN 29.4 pg (29.0-33.0); MEAN CORPUSCULAR HGB CONC 32.7 g/dl (32.0-37.0); MEAN CORPUSCULAR VOLUME 90.1 fl (82.0-101.0); MEAN PLATELET VOLUME 11.1 fl (7.4-10.4); MONOCYTE # 0.6 10^3/ul (0.3-0.9); MONOCYTES % 13.3 % (0.0-11.0); NEUTROPHIL # 1.8 10^3/ul (1.6-7.5); NEUTROPHILS % 40.1 % (39.0-77.0); PLATELET COUNT 141 10^3/UL (140-415); RED BLOOD COUNT 3.43 10^6/ul (4.20-5.40); RED CELL DISTRIBUTION WIDTH 15.6 % (11.5-14.5)
[2018-11-16 06:38] LABS: WHITE BLOOD COUNT 4.5 10^3/ul (4.8-10.8)
[2018-11-16] MEDS: FAMOTIDINE 20 MG INJ IV (08:30)
[2018-11-16] MEDS: LORAZEPAM 2 MG INJ IV ×2 (08:44→17:06)
[2018-11-16] MEDS: MULTIVITAMINS 10 ML, THIAMINE 100 MG, FOLIC ACID 1 MG in SOD CHLORIDE 0.9% 1,000 ML IVPB (10:03)
[2018-11-16] MEDS: POTASSIUM CHLORIDE 100 ML IVPB ×2 (10:09→13:26)
[2018-11-16] MEDS: OLANZAPINE 10 MG VIAL IM ×2 (12:24→16:31)
[2018-11-16] MEDS: CEFTRIAXONE 1 GM/50 ML (PMX) 50 ML IVPB (14:39)
[2018-11-16] MEDS: LACTULOSE 30ML CUP PR ×2 (16:36→21:17)
[2018-11-17] MEDS: OLANZAPINE 10 MG VIAL IM ×3 (00:17→12:36)
[2018-11-17] MEDS: INSULIN ASPART [NOVOLOG] 3 ML PEN SC ×5 (00:27→17:00)
[2018-11-17] MEDS: LORAZEPAM 2 MG INJ IV ×2 (01:30→11:24)
[2018-11-17] MEDS: DEXTROSE 5%-0.9% NACL 1,000 ML IV (01:37)
[2018-11-17] MEDS: ACCU-CHEK XX (02:00)
[2018-11-17] MEDS: LACTULOSE 30ML CUP PR ×2 (05:27→14:20)
[2018-11-17 05:42] LABS: HEMATOCRIT 29.7 % (37.0-47.0); HEMOGLOBIN 9.6 g/dl (12.0-16.0); MEAN CORPUSCULAR HEMOGLOBIN 28.8 pg (29.0-33.0); MEAN CORPUSCULAR HGB CONC 32.3 g/dl (32.0-37.0); MEAN CORPUSCULAR VOLUME 89.2 fl (82.0-101.0); PLATELET COUNT 128 10^3/UL (140-415); RED BLOOD COUNT 3.33 10^6/ul (4.20-5.40); RED CELL DISTRIBUTION WIDTH 15.6 % (11.5-14.5)
[2018-11-17 05:42] LABS: WHITE BLOOD COUNT 4.5 10^3/ul (4.8-10.8)
[2018-11-17 06:00] LABS: AMMONIA 26 umol/l (9-30)
[2018-11-17 06:07] LABS: ANION GAP 1 (5-13); BLOOD UREA NITROGEN 7 mg/dl (7-20); CALCIUM 7.9 mg/dl (8.4-10.2); CARBON DIOXIDE 26 mmol/L (21-31); CHLORIDE 114 mmol/L (97-110); CREATININE 0.55 mg/dl (0.44-1.00); Estimated GFR > 60 mL/min (>60); GLUCOSE 118 mg/dl (70-220); POTASSIUM 3.4 mmol/L (3.5-5.1); SODIUM 141 mmol/L (135-144)
[2018-11-17 06:17] LABS: ADD MAN DIFF? YES; POSITIVE DIFF @See below
[2018-11-17] MEDS: FAMOTIDINE 20 MG INJ IV (08:14)
[2018-11-17] MEDS: MULTIVITAMINS 10 ML, THIAMINE 100 MG, FOLIC ACID 1 MG in SOD CHLORIDE 0.9% 1,000 ML IVPB (08:14)
[2018-11-17 09:42] LABS: ANISOCYTOSIS 1+ (0-0); BAND NEUTROPHILS #M 0.2 10^3/ul (0.0-0.6); BAND NEUTROPHILS % (M) 5 % (0-4); BASOPHILS % (M) 2 % (0-2); BURR CELLS 2+ (0-0); EOSINOPHILS % (M) 7 % (0-7); LYMPHOCYTES #M 1.3 10^3/ul (0.8-2.9); LYMPHOCYTES % (M) 30 % (15-51); MONOCYTE #M 0.3 10^3/ul (0.3-0.9); MONOCYTES % (M) 7 % (0-11); OVALOCYTES 1+ (0-0); PLATELET ESTIMATE DECREASED; SEG NEUT #M 2.2 10^3/ul (1.6-7.5); SEGMENTED NEUTROPHILS (M) % 49 % (39-77); SMUDGE%M 67 % (0-0)
[2018-11-17] MEDS: POTASSIUM CHLORIDE 100 ML IVPB ×2 (11:55→14:15)
[2018-11-17] MEDS: D5-NS + KCL 20 MEQ 1,000 ML IV (12:54)
[2018-11-17] MEDS: CEFTRIAXONE 1 GM/50 ML (PMX) 50 ML IVPB (14:20)
[2018-11-17] MEDS: LEVOFLOXACIN 500MG/D5W (PMX) 100 ML IVPB (16:34)
== END 2018-11-17 18:11 | DRG 432 ==
LOC: PP2 11-15 01:38 → E/R 19:11 → TEL 11-14 03:58 → PP2 11-15 14:50
DX: K70.40 Alcoholic hepatic failure without coma (principal); G92 Toxic encephalopathy; N39.0 Urinary tract infection, site not specified; K86.1 Other chronic pancreatitis; D61.818 Other pancytopenia; E11.65 Type 2 diabetes mellitus with hyperglycemia; B19.20 Unspecified viral hepatitis C without hepatic coma; K80.20 Calculus of gallbladder without cholecystitis without obstruction; E87.6 Hypokalemia
CPT/HCPCS: 36415; 80048; 80053; 80307; 81001; 82140; 82962; 83605; 83735; 84100; 85025; 85610; 85730; 87040-91; 87086; 87522; 92610; 93005; 93970; 99285-25